=== PATIENT | male | born 1995 | race Caucasian/White ===

== ENCOUNTER 2020-09-12 15:23 | Emergency (ER) | payer OTHER ==
[~2020-09-12] VITALS: Ht 170.2 cm; Wt 86.4 kg
[2020-09-12] MEDS ORDERED: LEVO75TA PO (15:37)
[2020-09-12] MEDS ORDERED: INSULIN REGULAR 100 UNITS/ML, 3ML VIAL SQ-INSULIN ONE (16:00)
--- NOTE | 2020-09-12 16:20 | NUR ---
URINE COLLECTED AND SENT TO LAB. PT TO CT.
[2020-09-12 16:39] LABS: MICROSCOPIC INDICATED
[2020-09-12 19:03] VITALS: BP 129/66
--- NOTE | 2020-09-12 19:03 | NUR ---
Patient given discharge instructions and they have confirmed that they understand the instructions. Patient ambulatory with steady gait.
== END 2020-09-12 19:04 | disposition home or self-care (01) ==
LOC: EDBD 16:13 → ED 16:13
DX: R10.32 Left lower quadrant pain (principal); N50.82 Scrotal pain; E03.9 Hypothyroidism, unspecified
CPT/HCPCS: 74176; 76870; 81001; 99285